=== PATIENT | male | born 1980 | race Caucasian/White ===

== ENCOUNTER → 2020-10-15 | Outpatient (REF) | payer OTHER ==
[2020-10-15 10:22] LABS: SEMEN APPEARANCE OPAQUE (OPAQUE); SEMEN pH 8.5 (7.0-8.0); SPERM CONCENTRATION 32.1 M/ml (>=15.0); WBC CONCENTRATION <=1 M/ml (<=1 M/ml)
[2020-10-15 10:24] LABS: SEMEN VISCOSITY VISCOUS (LIQUID)
== END ==
LOC: M LAB REF 10:10
PROVIDERS: ATTEND Specialist
DX: N46.9 Male infertility, unspecified (principal)